=== PATIENT | female | born 1985 | race Caucasian/White ===

== ENCOUNTER 2020-09-21 11:04 | Inpatient (IN) | payer MEDICAID, OTHER ==
[~2020-09-21] VITALS: Ht 157.5 cm; Wt 74.4 kg
[2020-09-21] MEDS ORDERED: HALOPERIDOL LACTATE 5MG/ML VIAL IM STA (11:20)
[2020-09-21] MEDS ORDERED: LORAZEPAM 2MG/ML CPJ IM STA (11:20)
[2020-09-21] MEDS ORDERED: SODIUM CHLORIDE 0.9% 1,000 ML IV ONE (11:30)
[2020-09-21 11:49] LABS: BASOPHILS % 0.5 % (0.0-2.0); EOSINOPHILS % 2.1 % (0.0-5.0); HEMATOCRIT. 40.8 % (36.0-48.0); HEMOGLOBIN. 13.5 g/dL (12.0-16.0); LYMPHOCYTES % 16.1 % (20.0-50.0); MEAN CORPUSCULAR HEMOGLOBIN 29.5 pg (28.0-32.0); MEAN CORPUSCULAR VOLUME 89.1 fL (81.0-99.0); MEAN PLATELET VOLUME 7.2 fl (7.4-10.4); MONOCYTES % 5.7 % (2.0-8.0); NEUTROPHILS % 75.6 % (40.0-76.0); PLATELET 353 x1000/uL (130-400); RED BLOOD CELL COUNT 4.57 mill/uL (4.2-5.4); RED CELL DISTRIBUTION WIDTH 14.3 % (11.6-14.6)
[2020-09-21 11:55] LABS: CHLORIDE 106 mEq/L (98-107)
[2020-09-21 11:58] LABS: HCG SCREEN NEGATIVE
[2020-09-21 11:59] LABS: ETHANOL BLOOD < 10 mg/dL
[2020-09-21 12:49] LABS: CLARITY URINE TURBID (CLEAR); COLOR URINE YELLOW (YELLOW); KETONES URINE NEGATIVE (NEGATIVE); LEUKOCYTE ESTERASE URINE 1+ (NEGATIVE); NITRITE URINE NEGATIVE (NEGATIVE); OCCULT BLOOD URINE NEGATIVE (NEGATIVE); PROTEIN URINE TRACE (NEGATIVE); SPECIFIC GRAVITY URINE 1.022 (1.005-1.030)
[2020-09-21 13:06] LABS: *BARBITURATES SCREEN URINE NEGATIVE (NEGATIVE); *BENZODIAZEPINES SCREEN URINE NEGATIVE (NEGATIVE); *COCAINE SCREEN URINE NEGATIVE (NEGATIVE)
[2020-09-21 13:07] LABS: METHADONE URINE SCREEN NEGATIVE (NEGATIVE); OPIATES URINE SCREEN NEGATIVE (NEGATIVE); PHENCYCLIDINE URINE SCREEN NEGATIVE (NEGATIVE)
[2020-09-21 13:14] LABS: *AMPHETAMINES SCREEN URINE PRESUMTIVE POSITIVE (NEGATIVE); CANNABINOID URINE SCREEN PRESUMTIVE POSITIVE (NEGATIVE)
[2020-09-21] MEDS ORDERED: IPRATROPIUM/ALBUTEROL 0.5-3(2.5)MG/3ML NEB HHN PRN (14:45)
[2020-09-21] MEDS ORDERED: CLONIDINE 0.1MG TABLET PO PRN (14:45)
[2020-09-21] MEDS ORDERED: ACETAMINOPHEN 325MG TABLET PO PRN (14:45)
[2020-09-21] MEDS ORDERED: ONDANSETRON HCL 4MG/2ML INJ IV PRN (14:45)
[2020-09-21] MEDS ORDERED: DIPHENHYDRAMINE 50MG/ML VIAL IV PRN (14:45)
[2020-09-21] MEDS: SODIUM CHLORIDE 0.9% 1,000 ML IV SCH (15:09)
[2020-09-21] MEDS ORDERED: CEFTRIAXONE 1 G PREMIX 50 ML IV SCH (15:30)
[2020-09-21] MEDS ORDERED: LORAZEPAM 2MG/ML CPJ IV NR (16:15)
[2020-09-21] MEDS ORDERED: HALOPERIDOL LACTATE 5MG/ML VIAL IM NR (16:30)
[2020-09-21] MEDS ORDERED: HALOPERIDOL LACTATE 5MG/ML VIAL IM PRN (17:00)
[2020-09-21] MEDS ORDERED: LORAZEPAM 2MG/ML CPJ IM PRN (17:00)
[2020-09-22] MEDS: SODIUM CHLORIDE 0.9% 1,000 ML IV SCH ×2 (04:31→20:38)
[2020-09-22 05:17] LABS: BASOPHILS % 0.3 % (0.0-2.0); EOSINOPHILS % 0.8 % (0.0-5.0); HEMATOCRIT. 37.8 % (36.0-48.0); HEMOGLOBIN. 12.6 g/dL (12.0-16.0); LYMPHOCYTES % 18.2 % (20.0-50.0); MEAN CORPUSCULAR HEMOGLOBIN 29.5 pg (28.0-32.0); MEAN CORPUSCULAR VOLUME 88.3 fL (81.0-99.0); MEAN PLATELET VOLUME 6.8 fl (7.4-10.4); NEUTROPHILS % 74.7 % (40.0-76.0); PLATELET 333 x1000/uL (130-400); RED BLOOD CELL COUNT 4.28 mill/uL (4.2-5.4); RED CELL DISTRIBUTION WIDTH 14.4 % (11.6-14.6)
[2020-09-22 05:23] LABS: CHLORIDE 112 mEq/L (98-107)
[2020-09-22 05:30] LABS: LDL CHOLESTEROL 93 mg/dL (5-100)
[2020-09-22 05:31] LABS: HDL CHOLESTEROL 38 mg/dL (40-59)
[2020-09-22] MEDS ORDERED: CEFTRIAXONE 1,000 MG in DEXTROSE 5% WATER 50 ML IV SCH (09:00)
[2020-09-22] MEDS ORDERED: CEFTRIAXONE SODIUM 1 G/VIAL ONE (10:01)
[2020-09-22] MEDS ORDERED: NITR100C11 MT (15:19)
[2020-09-23 07:25] VITALS: BP 134/66
== END 2020-09-23 08:23 | disposition home or self-care (01) | DRG 720 ==
LOC: ER 11:09 → MICUSO 13:18 → EDBEDREQTM 13:22 → EDBEDREQ 13:22 → EDBEDREQTM 13:47 → EDBEDREQ 13:47 → 5EST 09-22 07:22 → MICUSO 09-22 09:43
PROVIDERS: ADMIT Internal Medicine; ATTEND Internal Medicine
DX: A41.9 Sepsis, unspecified organism (principal); E87.6 Hypokalemia; N39.0 Urinary tract infection, site not specified; F32.9 Major depressive disorder, single episode, unspecified; F17.200 Nicotine dependence, unspecified, uncomplicated; T14.91XA Suicide attempt, initial encounter; R00.0 Tachycardia, unspecified; F19.90 Other psychoactive substance use, unspecified, uncomplicated; Z71.51 Drug abuse counseling and surveillance of drug abuser; I10 Essential (primary) hypertension; R45.1 Restlessness and agitation
CPT/HCPCS: 36415; 71045; 80053; 80061; 80305; 80320; 81003; 84443; 84703; 85025; 93005; 93970; 99291; J0696; J1200; J1630; J2060; J7030; J7060; G0480